=== PATIENT | male | born 1985 ===

== ENCOUNTER 2017-06-21 20:09 | Emergency (ER) | payer SELFPAY ==
[2017-06-21 20:17] VITALS: O2SAT 97
[2017-06-21] MEDS ORDERED: Sodium Chloride 0.9% 1,000 ML IV STA (22:06)
[2017-06-21 22:47] LABS: BASO % 0.6 % (0.0-2.0); HEMOGLOBIN 14.3 g/dL (12.0-18.0); LYMPH # 0.7 K/uL (1.0-4.3); LYMPH % 12.2 % (20.0-40.0); MEAN CELL VOLUME 86.9 fl (80.0-94.0); MEAN CORPUSCULAR HGB CONC 33.3 g/dL (33.0-37.0); MEAN PLATELET VOLUME 7.9 fl (7.2-11.7); MONO # 0.4 K/uL (0.0-0.8); MONO % 6.8 % (0.0-10.0); NEUT # 4.8 K/uL (1.8-7.0); NEUT % 80.4 % (50.0-75.0); RBC 4.94 Mil/uL (4.40-5.90)
[2017-06-21 23:04] LABS: ALBUMIN 4.5 g/dL (3.5-5.0); ALT/SGPT 43 U/L (21-72); AST/SGOT 25 U/L (17-59); BLOOD UREA NITROGEN 14 mg/dl (9-20); GFR AFRICAN-AMERICAN > 60; GFR NON-AFRICAN AMERICAN > 60; LIPASE 49 U/L (23-300)
[2017-06-21 23:05] LABS: ALB/GLOB RATIO 1.2 (1.0-2.1)
--- NOTE | 2017-06-21 23:35 | ED PDOC ---
HPI: Abdomen Time Seen by Provider: 06/21/17 21:53 Chief Complaint (Nursing): GI Problem Chief Complaint (Provider): GI Problem History Per: Patient History/Exam Limitations: no limitations Onset/Duration Of Symptoms: Days (x1) Current Symptoms Are (Timing): Still Present Additional Complaint(s): 32 year old male with previous medical history of spina bifida, who presents to the emergency department with a complaint of 15 episodes of vomiting associated with upper abdominal pain and gurgling noises ongoing since 0500 today. Denied any fever, chills, constipation or diarrhea. PMD: none provided Past Medical History Reviewed: Historical Data, Nursing Documentation, Vital Signs Vital Signs: Last Vital Signs Temp 99.6 F 06/21/17 20:14 Pulse 117 H 06/21/17 20:14 Resp 19 06/21/17 20:14 BP 164/94 H 06/21/17 20:14 Pulse Ox 97 06/21/17 23:40 - Medical History PMH: Migraine Other PMH: Spina bifida - Surgical History Surgical History: Denies: No Surg Hx Other surgeries: vp client services shunt - Family History Family History: States: Unknown Family Hx - Social History Current smoker - smoking cessation education provided: No Ex-Smoker (has not smoked in the last 12 months): No Alcohol: None Drugs: Cannabis - Home Medications Home Medications: Ambulatory Orders Medication Instructions Recorded Famotidine [Pepcid] 20 mg PO BID #20 tab 06/22/17 Ondansetron [Zofran] 4 mg PO Q8H #12 tab 06/22/17 - Allergies Allergies/Adverse Reactions: Allergies Allergy/AdvReac Type Severity Reaction Status Date / Time No Known Allergies Allergy Verified 06/21/17 20:13 Review of Systems ROS Statement: Except As Marked, All Systems Reviewed And Found Negative Constitutional: Negative for: Fever, Chills Gastrointestinal: Positive for: Vomiting (x15), Abdominal Pain (upper with gurgling sounds). Negative for: Diarrhea, Constipation Physical Exam - Reviewed Nursing Documentation Reviewed: Yes Vital Signs Reviewed: Yes - Physical Exam Appears: Positive for: Well, Non-toxic, No Acute Distress Head Exam: Positive for: ATRAUMATIC, NORMAL INSPECTION, NORMOCEPHALIC Skin: Positive for: Normal Color Eye Exam: Positive for: Normal appearance ENT: Positive for: Normal ENT Inspection Neck: Positive for: Normal, Painless ROM. Negative for: Decreased ROM Cardiovascular/Chest: Positive for: Regular Rate, Rhythm, Chest Non Tender Respiratory: Positive for: Normal Breath Sounds. Negative for: Decreased Breath Sounds, Wheezing, Respiratory Distress Gastrointestinal/Abdominal: Positive for: Soft, Tenderness (epigastric), Other ( old surgical scars present). Negative for: Normal Exam, Mass Extremity: Positive for: Normal ROM (upper/lower). Negative for: Deformity ( upper/lower) Neurologic/Psych: Positive for: Alert (x3), Oriented - Laboratory Results Result Diagrams: 06/21/17 22:40 06/21/17 22:40 - ECG O2 Sat by Pulse Oximetry: 97 (RA) Pulse Ox Interpretation: Normal Medical Decision Making Medical Decision Making: Initial Impression: Enteritis Initial Plan: * CMP * Lipase * CBC * NS 1,000ml IV per 1,000mls/hr * Toradol 30mg IVP * Zofran 4mg IVP ____ Time: 0130 --Upon provider reevaluation, patient is medically stable, feeling improved, tolerating PO well and requires no further treatment in the ED at this time. Patient will be discharged home with Rx for Pepcid 20mg and Zofran 4mg. Counseling was provided and all questions were answered regarding diagnosis and need for follow up with PMD. There is agreement to discharge plan. Return if symptoms persist or worsen. Clinical Impression: Gastroenteritis Scribe Attestation: Documented by Heather Covarrubias, acting as a scribe for Ty Mota MD. Provider Scribe Attestation: All medical record entries made by the Scribe were at my direction and personally dictated by me. I have reviewed the chart and agree that the record accurately reflects my personal performance of the history, physical exam, medical decision making, and the department course for this patient. I have also personally directed, reviewed, and agree with the discharge instructions and disposition. Disposition - Clinical Impression Clinical Impression: Gastroenteritis - Patient ED Disposition Is Patient to be Admitted: No Counseled Patient/Family Regarding: Studies Performed, Diagnosis, Need For Followup, Rx Given - Disposition Referrals: [facility] S[facility] [Outside] Disposition: Routine/Home Disposition Time: 01:30 Condition: IMPROVED Prescriptions: Famotidine [Pepcid] 20 mg PO BID #20 tab Ondansetron [Zofran] 4 mg PO Q8H #12 tab Instructions: Gastroenteritis (ED) Forms: [employer] (Icelandic)
[2017-06-22] MEDS ORDERED: Alum-Mag Hydrox-Simethicone Susp (30 mL) PO STA (00:18)
[2017-06-22] MEDS ORDERED: Alum-Mag Hydrox-Simethicone Susp (30 mL) ONE (00:38)
[2017-06-22 01:44] VITALS: BP 119/74; PULSE 96; RESP 18; TEMP 99
== END 2017-06-22 01:50 | disposition home or self-care (01) ==
LOC: H.ER 20:09
DX: K52.9 Noninfective gastroenteritis and colitis, unspecified (principal); Z98.2 Presence of cerebrospinal fluid drainage device
CPT/HCPCS: 80053; 83690; 85025; 96361; 96374; 96375; 99283; J1885; J2405; J7040

== ENCOUNTER 2018-05-19 02:50 | Inpatient (IN) | payer OTHER ==
[2018-05-19] MEDS ORDERED: Alum-Mag Hydrox-Simethicone Susp (30 mL) PO ONE (03:26)
[2018-05-19] MEDS ORDERED: Sodium Chloride 0.9% 1,000 ML IV STA (04:10)
--- NOTE | 2018-05-19 04:52 | ED PDOC ---
HPI: Abdomen Time Seen by Provider: 05/19/18 03:18 Chief Complaint (Nursing): Abdominal Pain Chief Complaint (Provider): Abdominal Pain History Per: Patient History/Exam Limitations: no limitations Onset/Duration Of Symptoms: Days (x1) Current Symptoms Are (Timing): Still Present Location Of Pain/Discomfort: Epigastric Quality Of Discomfort: Burning Associated Symptoms: Vomiting. denies: Fever Additional Complaint(s): 33 year old male, with a history of spina bifida and high blood pressure, presents with epigastric pain that started Saturday morning. Patient reports a burning pain that goes up into his chest. He states he took Tums and felt better but pain came back in the evening and it worsened. He states he can not sit down because of the pain. He reports he vomited x1 episode which was nonbloody and nonbilious. Denies abnormal bowel movements or fever. PMD: [facility] Past Medical History Reviewed: Historical Data, Nursing Documentation, Vital Signs Vital Signs: Last Vital Signs Temp 98 F 05/19/18 03:05 Pulse 90 05/19/18 03:05 Resp 16 05/19/18 03:05 BP 169/123 H 05/19/18 03:05 Pulse Ox 99 05/19/18 03:05 - Medical History PMH: Gastritis, HTN, Migraine Other PMH: spina bifida - Surgical History Surgical History: No Surg Hx - Family History Family History: States: Unknown Family Hx - Home Medications Home Medications: Ambulatory Orders Medication Instructions Recorded Famotidine [Pepcid] 20 mg PO BID #20 tab 06/22/17 Ondansetron [Zofran] 4 mg PO Q8H #12 tab 06/22/17 - Allergies Allergies/Adverse Reactions: Allergies Allergy/AdvReac Type Severity Reaction Status Date / Time No Known Allergies Allergy Verified 05/19/18 03:05 Review of Systems ROS Statement: Except As Marked, All Systems Reviewed And Found Negative Constitutional: Negative for: Fever Gastrointestinal: Positive for: Vomiting (x1), Abdominal Pain (epigastric pain). Negative for: Other (abnormal bowel movements) Physical Exam - Reviewed Nursing Documentation Reviewed: Yes Vital Signs Reviewed: Yes - Physical Exam Appears: Positive for: Non-toxic, No Acute Distress Head Exam: Positive for: ATRAUMATIC, NORMOCEPHALIC Skin: Positive for: Normal Color, Warm, Dry Eye Exam: Positive for: Normal appearance Neck: Positive for: Normal, Painless ROM Cardiovascular/Chest: Positive for: Regular Rate, Rhythm Respiratory: Positive for: Normal Breath Sounds. Negative for: Wheezing, Respiratory Distress Gastrointestinal/Abdominal: Positive for: Soft, Tenderness (to palpation in epigastric region). Negative for: Guarding, Rebound Extremity: Positive for: Normal ROM Neurologic/Psych: Positive for: Alert, Oriented. Negative for: Motor/Sensory Deficits - Laboratory Results Result Diagrams: 05/19/18 04:40 05/19/18 04:40 - ECG O2 Sat by Pulse Oximetry: 99 (RA) Pulse Ox Interpretation: Normal Medical Decision Making Medical Decision Making: Initial Impression: 33 y/o male with epigastric pain and vomiting x1 day. Patient is uncomfortable but otherwise well appearing. Differential includes but not limited to GERD, gastritis, pancreatitis, and biliary disease Initial Plan: --BMP --Lipase stat --LFT --CBC --Lidocaine 2% 15ml PO --Aluminum hydroxide 30mL PO --Sodium chloride 1000mL IV --Pepcid 20mg PO 400 Patient had no relief from GI cocktail Labs and PPI ordered 515 Patient still in pain Morphine 2mg IV ordered CT A/P ordered for continued abd pain [address] Francisco pending CT and re-eval --- Scribe Attestation: Documented by Adriano Sarkar acting as a scribe for Ty Mota MD. Provider Scribe Attestation: All medical record entries made by the Scribe were at my direction and personally dictated by me. I have reviewed the chart and agree that the record accurately reflects my personal performance of the history, physical exam, medical decision making, and the department course for this patient. I have also personally directed, reviewed, and agree with the discharge instructions and disposition. Disposition - Clinical Impression Clinical Impression: Abdominal pain - Patient ED Disposition Is Patient to be Admitted: Transfer of Care - Disposition Disposition: Transfer of Care Disposition Time: 07:00 Condition: STABLE Forms: [employer] (Azerbaijani) Patient Signed Over To: Zoraida Francisco Handoff Comments: pending CT and re-eval
[2018-05-19 05:02] LABS: BASO # 0.1 K/uL (0.0-0.2); BASO % 0.8 % (0.0-2.0); EOS # 0.1 K/uL (0.0-0.7); EOS % 1.1 % (0.0-4.0); HEMOGLOBIN 14.4 g/dL (12.0-18.0); LYMPH # 1.6 K/uL (1.0-4.3); MEAN CELL VOLUME 88.3 fl (80.0-94.0); MEAN CORPUSCULAR HEMOGLOBIN 29.6 pg (27.0-31.0); MEAN CORPUSCULAR HGB CONC 33.5 g/dL (33.0-37.0); MEAN PLATELET VOLUME 8.1 fl (7.2-11.7); MONO # 0.6 K/uL (0.0-0.8); MONO % 8.9 % (0.0-10.0); NEUT # 4.7 K/uL (1.8-7.0); NEUT % 66.2 % (50.0-75.0); RBC 4.86 Mil/uL (4.40-5.90); RED CELL DISTRIBUTION WIDTH 13.2 % (11.5-14.5); WHITE BLOOD COUNT 7.1 K/uL (4.8-10.8)
[2018-05-19 05:08] LABS: ALB/GLOB RATIO 1.2 (1.0-2.1); ALBUMIN 4.5 g/dL (3.5-5.0); ALT/SGPT 41 U/L (21-72); AST/SGOT 25 U/L (17-59); BILIRUBIN,DIRECT 0.2 mg/ml (0.0-0.4); BLOOD UREA NITROGEN 14 mg/dl (9-20); CALCIUM 9.3 mg/dL (8.4-10.2); GFR NON-AFRICAN AMERICAN > 60; LIPASE 48 U/L (23-300)
[2018-05-19] MEDS ORDERED: Iohexol 240 (50 ml) PO ONE (05:23)
--- NOTE | 2018-05-19 07:07 | ED PDOC ---
- Laboratory Results Result Diagrams: 05/19/18 04:40 05/19/18 04:40 - ECG O2 Sat by Pulse Oximetry: 99 (RA) Medical Decision Making Medical Decision Makin Patient care endorsed from Dr. Mota to this provider pending CT and reevaluation. 1033 CT Abd/Pelvis FINDINGS: LOWER THORAX: The visualized lungs are clear. LIVER: Normal in size with homogeneous enhancement. Diffuse fatty liver. No gross lesion or ductal dilatation. GALLBLADDER AND BILE DUCTS: There is a 3.2 cm peripherally calcified gallstone in the region of the neck of the gallbladder. There is mild gallbladder distention. No wall thickening or pericholecystic fluid. PANCREAS: Normal in size with homogeneous enhancement. No gross lesion or ductal dilatation. SPLEEN: Normal in size and appearance. ADRENALS: No discrete nodule. KIDNEYS AND URETERS: Normal in size with homogeneous enhancement. No hydronephrosis. No solid mass. VASCULATURE: No aortic aneurysm. BOWEL: Evaluation of the bowel is limited in the absence of oral contrast. The small bowel loops are normal in caliber. The colon is grossly normal in appearance. No bowel wall thickening or obstruction. APPENDIX: Normal appendix. PERITONEUM: No free fluid. No free air. LYMPH NODES: No enlarged lymph nodes. BLADDER: Partially decompressed. REPRODUCTIVE: The prostate gland is normal in size. BONES: No acute fracture. Within normal limits for the patient's age. OTHER FINDINGS: None. IMPRESSION: 3.1 cm gallstone in the region of the neck of the gallbladder. Mild gallbladder distention without CT evidence for acute cholecystitis. If clinically indic ated, correlation with right upper quadrant ultrasound may be performed. [address] findings, US abdomen ordered. 1147 US Abdomen FINDINGS: LIVER: Measures 18.7 cm in length. Normal echogenicity of the liver parenchyma. No mass. No intrahepatic bile duct dilatation. GALLBLADDER: There is a 1.8 cm stone in the region of the neck of the gallbladder. No gallbl adder wall thickening or pericholecystic fluid. The sonographic Shelley's sign is negative. COMMON BILE DUCT: Measures 3.5 mm. No stones. No dilatation. PANCREAS: Unremarkable as visualized. No mass. No ductal dilatation. RIGHT KIDNEY: Measures 12.0 cm in length. Normal echogenicity. No calculus, mass, or hydronephrosis. AORTA: No aneurysmal dilatation. IVC: Unremarkable. OTHER FINDINGS: None . IMPRESSION: Solitary 1.8 cm gallstone in the region of the neck of the gallbladder. Mild hepatomegaly and fatty liver. 1211 Discussed case with residential mortgage manager. ------- Scribe Attestation: Documented by Adriana Villarreal acting as a scribe for Zoraida Francisco MD. Provider Scribe Attestation: All medical record entries made by the Scribe were at my direction and personally dictated by me. I have reviewed the chart and agree that the record accurately reflects my personal performance of the history, physical exam, medical decision making, and the department course for this patient. I have also personally directed, reviewed, and agree with the discharge instructions and disposition. Disposition - Clinical Impression Clinical Impression: Cholelithiasis - POA Present On Arrival: None - Disposition Disposition: Admitted as In-Patient Disposition Time: 13:45 Condition: STABLE Forms: [employer] (Urdu)
[2018-05-19] MEDS ORDERED: Iohexol 300 100 ML IJ ONE (07:35)
[2018-05-19] MEDS ORDERED: Sodium Chloride 0.9% 50 ML IV ONE (07:35)
[2018-05-19 09:18] LABS: SQUAMOUS EPITHIAL < 1 /hpf (0-5); URINE BILIRUBIN NEGATIVE (NEGATIVE); URINE BLOOD NEGATIVE (NEGATIVE); URINE CLARITY CLEAR (Clear); URINE COLOR STRAW (YELLOW); URINE GLUCOSE (UA) NEG (NEGATIVE); URINE LEUKOCYTE ESTERASE NEG Leu/uL (Negative); URINE PROTEIN NEGATIVE (NEGATIVE); URINE UROBILINOGEN 0.2-1.0 mg/dL (0.2-1.0)
--- NOTE | 2018-05-19 10:37 | CT ---
Date of service: 05/19/2018 PROCEDURE: CT Abdomen and Pelvis with contrast HISTORY: epig pain COMPARISON: None available. TECHNIQUE: CT scan of the abdomen and pelvis was performed after administration of intravenous contrast. Oral contrast was not administered. Coronal and sagittal reformatted images were obtained. Contrast dose: Radiation dose: Total exam DLP = 919.59 mGy-cm. This CT exam was performed using one or more of the following dose reduction techniques: Automated exposure control, adjustment of the mA and/or kV according to patient size, and/or use of iterative reconstruction technique. FINDINGS: LOWER THORAX: The visualized lungs are clear. LIVER: Normal in size with homogeneous enhancement. Diffuse fatty liver. No gross lesion or ductal dilatation. GALLBLADDER AND BILE DUCTS: There is a 3.2 cm peripherally calcified gallstone in the region of the neck of the gallbladder. There is mild gallbladder distention. No wall thickening or pericholecystic fluid. PANCREAS: Normal in size with homogeneous enhancement. No gross lesion or ductal dilatation. SPLEEN: Normal in size and appearance. ADRENALS: No discrete nodule. KIDNEYS AND URETERS: Normal in size with homogeneous enhancement. No hydronephrosis. No solid mass. VASCULATURE: No aortic aneurysm. BOWEL: Evaluation of the bowel is limited in the absence of oral contrast. The small bowel loops are normal in caliber. The colon is grossly normal in appearance. No bowel wall thickening or obstruction. APPENDIX: Normal appendix. PERITONEUM: No free fluid. No free air. LYMPH NODES: No enlarged lymph nodes. BLADDER: Partially decompressed. REPRODUCTIVE: The prostate gland is normal in size. BONES: No acute fracture. Within normal limits for the patient's age. OTHER FINDINGS: None. IMPRESSION: 3.1 cm gallstone in the region of the neck of the gallbladder. Mild gallbladder distention without CT evidence for acute cholecystitis. If clinically indicated, correlation with right upper quadrant ultrasound may be performed.
--- NOTE | 2018-05-19 11:51 | US ---
Date of service: 05/19/2018 HISTORY: Gallbladder stone COMPARISON: None. TECHNIQUE: Grayscale imaging was performed. FINDINGS: LIVER: Measures 18.7 cm in length. Normal echogenicity of the liver parenchyma. No mass. No intrahepatic bile duct dilatation. GALLBLADDER: There is a 1.8 cm stone in the region of the neck of the gallbladder. No gallbladder wall thickening or pericholecystic fluid. The sonographic Shelley's sign is negative. COMMON BILE DUCT: Measures 3.5 mm. No stones. No dilatation. PANCREAS: Unremarkable as visualized. No mass. No ductal dilatation. RIGHT KIDNEY: Measures 12.0 cm in length. Normal echogenicity. No calculus, mass, or hydronephrosis. AORTA: No aneurysmal dilatation. IVC: Unremarkable. OTHER FINDINGS: None . IMPRESSION: Solitary 1.8 cm gallstone in the region of the neck of the gallbladder. Mild hepatomegaly and fatty liver.
--- NOTE | 2018-05-19 13:26 | CP.PCM.CON ---
<Db Osborne - Last Filed: 05/19/18 13:21> History of Present Illness - History of Present Illness History of Present Illness: General Surgery Consult Note for Dr. Mckeon Consult: Gallstones CC: Abdominal pain HPI: 33 year old male, past medical history of spina bifida s/p [employer] shunt, presents to the ED with constant, nonradiating epigastric pain that started saturday and worsened saturday night after eating a fatty meal. Patient had one episode of NBNB vomit and nausea. Tried Tylenol which did not help with pain. Nothing alleviates or worsens symptoms at this time. Denies any fevers. Has appetite but has not eaten since arrival. Passing gas and had a bowel movement. Patient has fecal and urinary incontinence secondary to medical condition. Denies shortness of breath, chest pain, chills, headaches, dizziness, or urinary symptoms. 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 FH: noncontributory SH: Smokes weed, denies tobacco and alcohol ALL: Tomatoes Meds: none Review of Systems - Constitutional Constitutional: absent: Chills, Fever, Weakness - EENT Eyes: absent: Blurred Vision, Change in Vision Nose/Mouth/Throat: absent: Nasal Congestion, Nasal Discharge - Cardiovascular Cardiovascular: absent: Chest Pain, Dyspnea - Respiratory Respiratory: absent: Cough, Dyspnea - Gastrointestinal Gastrointestinal: Abdominal Pain, Bloating, Nausea, Vomiting - Genitourinary Genitourinary: Urinary Incontinence - Musculoskeletal Musculoskeletal: absent: Back Pain, Neck Pain - Integumentary Integumentary: absent: Bleeding Lesions, Changing Lesions - Neurological Neurological: absent: Confusion, Dizziness - Psychiatric Psychiatric: absent: Anxiety, Depression Past Patient History - Past Social History Smoking Status: Never Smoked - CARDIAC Hx Hypertension: Yes - NEUROLOGICAL Hx Migraine: Yes - GASTROINTESTINAL Hx Gastritis: Yes - PSYCHIATRIC Hx Substance Use: Yes - SURGICAL HISTORY Hx Surgeries: Yes Other/Comment: E LEARNING MANAGER shunt - ANESTHESIA Hx Anesthesia: Yes Hx Anesthesia Reactions: No Hx Malignant Hyperthermia: No Meds Allergies/Adverse Reactions: Allergies Allergy/AdvReac Type Severity Reaction Status Date / Time No Known Allergies Allergy Verified 05/19/18 03:05 Physical Exam - Constitutional Appears: Well, Non-toxic, No Acute Distress - Head Exam Head Exam: ATRAUMATIC, NORMAL INSPECTION, NORMOCEPHALIC - Eye Exam Eye Exam: EOMI - ENT Exam ENT Exam: Mucous Membranes Moist - Respiratory Exam Respiratory Exam: NORMAL BREATHING PATTERN. absent: Respiratory Distress - Cardiovascular Exam Cardiovascular Exam: REGULAR RHYTHM. absent: Tachycardia - GI/Abdominal Exam GI & Abdominal Exam: Normal Bowel Sounds, Soft, Tenderness. absent: Distended, Guarding, Rebound Additional comments: Epigastric and suprapubic scars from previous surgeries - Neurological Exam Neurological exam: Alert, Oriented x3 - Psychiatric Exam Psychiatric exam: Normal Affect, Normal Mood - Skin Skin Exam: Dry, Intact, Normal Color, Warm Results - Vital Signs Recent Vital Signs: Last Vital Signs Temp 98 F 05/19/18 03:05 Pulse 90 05/19/18 03:05 Resp 16 05/19/18 03:05 BP 141/80 05/19/18 05:29 Pulse Ox 99 05/19/18 12:13 - Labs Result Diagrams: 05/19/18 04:40 05/19/18 04:40 Labs: Laboratory Results - last 24 hr 05/19/18 05/19/18 05/19/18 04:40 04:40 08:54 WBC 7.1 RBC 4.86 Hgb 14.4 Hct 42.9 MCV 88.3 MCH 29.6 MCHC 33.5 RDW 13.2 Plt Count 305 MPV 8.1 Neut % (Auto) 66.2 Lymph % (Auto) 23.0 [place] % (Auto) 8.9 Eos % (Auto) 1.1 Baso % (Auto) 0.8 Neut # (Auto) 4.7 Lymph # (Auto) 1.6 [place] # (Auto) 0.6 Eos # (Auto) 0.1 Baso # (Auto) 0.1 Sodium 140 Potassium 4.3 Chloride 103 Carbon Dioxide 26 Anion Gap 15 BUN 14 Creatinine 0.7 L Est GFR ( Amer) > 60 Est GFR (Non-Af Amer) > 60 Random Glucose 116 H Calcium 9.3 Total Bilirubin 0.6 Direct Bilirubin 0.2 AST 25 ALT 41 Alkaline Phosphatase 65 Total Protein 8.5 H Albumin 4.5 Globulin 4.0 H Albumin/Globulin Ratio 1.2 Lipase 48 Urine Color Straw Urine Clarity Clear Urine pH 7.0 Ur Specific [place] 1.010 Urine Protein Negative Urine Glucose (UA) Neg Urine Ketones Negative Urine Blood Negative Urine Nitrate Negative Urine Bilirubin Negative Urine Urobilinogen 0.2-1.0 Ur Leukocyte Esterase Neg Urine RBC (Auto) < 1 Urine Microscopic WBC < 1 Ur Squamous Epith Cells < 1 Assessment & Plan - Assessment and Plan (Free Text) Assessment: 33M w/ abdominal pain likely secondary to cholelithiasis Plan: NPO IVF Antiemetics and analgesics Will schedule for OR Further recommendations per Dr. Mike Osborne PGY1 <Shantanu Mckeon - Last Filed: 05/19/18 13:42> Results - Vital Signs Recent Vital Signs: Last Vital Signs Temp 98 F 05/19/18 03:05 Pulse 90 05/19/18 03:05 Resp 16 05/19/18 03:05 BP 141/80 05/19/18 05:29 Pulse Ox 99 05/19/18 12:13 - Labs Result Diagrams: 05/19/18 04:40 05/19/18 04:40 Labs: Laboratory Results - last 24 hr 05/19/18 05/19/18 05/19/18 04:40 04:40 08:54 WBC 7.1 RBC 4.86 Hgb 14.4 Hct 42.9 MCV 88.3 MCH 29.6 MCHC 33.5 RDW 13.2 Plt Count 305 MPV 8.1 Neut % (Auto) 66.2 Lymph % (Auto) 23.0 [place] % (Auto) 8.9 Eos % (Auto) 1.1 Baso % (Auto) 0.8 Neut # (Auto) 4.7 Lymph # (Auto) 1.6 [place] # (Auto) 0.6 Eos # (Auto) 0.1 Baso # (Auto) 0.1 Sodium 140 Potassium 4.3 Chloride 103 Carbon Dioxide 26 Anion Gap 15 BUN 14 Creatinine 0.7 L Est GFR ( Amer) > 60 Est GFR (Non-Af Amer) > 60 Random Glucose 116 H Calcium 9.3 Total Bilirubin 0.6 Direct Bilirubin 0.2 AST 25 ALT 41 Alkaline Phosphatase 65 Total Protein 8.5 H Albumin 4.5 Globulin 4.0 H Albumin/Globulin Ratio 1.2 Lipase 48 Urine Color Straw Urine Clarity Clear Urine pH 7.0 Ur Specific [place] 1.010 Urine Protein Negative Urine Glucose (UA) Neg Urine Ketones Negative Urine Blood Negative Urine Nitrate Negative Urine Bilirubin Negative Urine Urobilinogen 0.2-1.0 Ur Leukocyte Esterase Neg Urine RBC (Auto) < 1 Urine Microscopic WBC < 1 Ur Squamous Epith Cells < 1 Assessment & Plan - Assessment and Plan (Free Text) Plan: addendum agree with resident note pt seen and examined at bedside with residents. reports epigastric pain x 2 days which worsen at 3am today, 1 episodes of non bilious vomiting. Pain only relieved in ED after given morphine. Currently pain has improved and tolerable but persist. One similar episode about 1 yr ago. 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
[2018-05-19] MEDS ORDERED: Piperacillin/Tazobact 3.375 gm Inj IVPB ONE (13:49)
[2018-05-19] MEDS: Piperacillin/Tazobact 3.375 GM in Sodium Chloride 0.9% 100 ML IVPB SCH (13:59)
[2018-05-19] MEDS: Lactated Ringer's 1,000 ML IV SCH (13:59)
--- NOTE | 2018-05-19 14:29 | RAD ---
Date of service: 05/19/2018 PROCEDURE: CHEST RADIOGRAPH, 1 VIEW HISTORY: preop COMPARISON: None available. FINDINGS: Right IJV line terminates in the right atrium. LUNGS: The lungs are well inflated and clear. PLEURA: No pneumothorax or pleural effusion. CARDIOVASCULAR: The heart is normal in size. No aortic atherosclerotic calcifications present. OSSEOUS STRUCTURES: Within normal limits for the patient's age. VISUALIZED UPPER ABDOMEN: Normal. OTHER FINDINGS: None. IMPRESSION: No active pulmonary disease.
--- NOTE | 2018-05-19 19:08 | CP.PCM.HP ---
History of Present Illness - History of Present Illness History of Present Illness: 33 yo male with history of Spina Bifida and urinary incontinence came in because of on and off epigastric pain since 2 days ago. Pain was non-radiating and not accompanied with nausea, vomiting or diarrhea. Patient denied fever or chills. Present on Admission - Present on Admission Any Indicators Present on Admission: No History of DVT/PE: No History of Uncontrolled Diabetes: No Urinary Catheter: No Decubitus Ulcer Present: No Review of Systems - Review of Systems All systems: reviewed and no additional remarkable complaints except (aside from those mentioned above, 12 point system review were negative by me) Past Patient History - Tetanus Immunizations Tetanus Immunization: Unknown - Past Medical History & Family History Past Medical History?: Yes - Past Social History Smoking Status: Never Smoked (never smoke cigarettes but smokes weeds daily) Chewing Tobacco Use: No Cigar Use: No Alcohol: Occasional Drugs: Cannabis Home Situation {Lives}: With Family - CARDIAC Hx Hypertension: Yes - NEUROLOGICAL Hx Migraine: Yes - GASTROINTESTINAL Hx Gastritis: Yes - PSYCHIATRIC Hx Substance Use: Yes - SURGICAL HISTORY Hx Surgeries: Yes Other/Comment: CENTERPUNCHER shunt during infancy - ANESTHESIA Hx Anesthesia: Yes Hx Anesthesia Reactions: No Hx Malignant Hyperthermia: No Meds Allergies/Adverse Reactions: Allergies Allergy/AdvReac Type Severity Reaction Status Date / Time No Known Allergies Allergy Verified 05/19/18 03:05 Physical Exam - Constitutional Appears: No Acute Distress - Head Exam Head Exam: absent: NORMAL INSPECTION (elevated surgical scar on right parieto- temporal area) - Eye Exam Eye Exam: absent: Scleral icterus - ENT Exam ENT Exam: Mucous Membranes Moist - Neck Exam Neck exam: Negative for: Meningismus - Respiratory Exam Respiratory Exam: absent: Rales, Rhonchi, Wheezes, Respiratory Distress - Cardiovascular Exam Cardiovascular Exam: REGULAR RHYTHM, +S1, +S2 - GI/Abdominal Exam GI & Abdominal Exam: Soft. absent: Tenderness - Rectal Exam Rectal Exam: Deferred - Neurological Exam Neurological exam: Alert, Oriented x3 - Psychiatric Exam Psychiatric exam: Normal Affect - Skin Skin Exam: Dry, Intact Results - Vital Signs Recent Vital Signs: Last Vital Signs Temp 98.4 F 05/19/18 17:56 Pulse 88 05/19/18 17:56 Resp 18 05/19/18 17:56 BP 155/89 H 05/19/18 17:56 Pulse Ox 99 05/19/18 17:56 - Labs Result Diagrams: 05/19/18 04:40 05/19/18 04:40 Labs: Laboratory Results - last 24 hr 05/19/18 05/19/18 05/19/18 04:40 04:40 08:54 WBC 7.1 RBC 4.86 Hgb 14.4 Hct 42.9 MCV 88.3 MCH 29.6 MCHC 33.5 RDW 13.2 Plt Count 305 MPV 8.1 Neut % (Auto) 66.2 Lymph % (Auto) 23.0 Sanders % (Auto) 8.9 Eos % (Auto) 1.1 Baso % (Auto) 0.8 Neut # (Auto) 4.7 Lymph # (Auto) 1.6 Sanders # (Auto) 0.6 Eos # (Auto) 0.1 Baso # (Auto) 0.1 Sodium 140 Potassium 4.3 Chloride 103 Carbon Dioxide 26 Anion Gap 15 BUN 14 Creatinine 0.7 L Est GFR ( Amer) > 60 Est GFR (Non-Af Amer) > 60 Random Glucose 116 H Calcium 9.3 Total Bilirubin 0.6 Direct Bilirubin 0.2 AST 25 ALT 41 Alkaline Phosphatase 65 Total Protein 8.5 H Albumin 4.5 Globulin 4.0 H Albumin/Globulin Ratio 1.2 Lipase 48 Urine Color Straw Urine Clarity Clear Urine pH 7.0 Ur Specific Oracle 1.010 Urine Protein Negative Urine Glucose (UA) Neg Urine Ketones Negative Urine Blood Negative Urine Nitrate Negative Urine Bilirubin Negative Urine Urobilinogen 0.2-1.0 Ur Leukocyte Esterase Neg Urine RBC (Auto) < 1 Urine Microscopic WBC < 1 Ur Squamous Epith Cells < 1 Assessment & Plan - Assessment and Plan (Free Text) Assessment: 33 yo male with history of Spina Bifida and urinary incontinence came in because of on and off epigastric pain since 2 days ago. Pain was non-radiating and not accompanied with nausea, vomiting or diarrhea. Patient denied fever or chills. 1. Cholelithiasis surgical consult on board CT and sonogram of abdomen showed 3.1cm gallstone in the neck of gallbladder but negative for cholecystitis patient started on IV Zosyn follow up blood culture 2. 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 Elevated BP patient denied HTN and denied taking BP medication presently BP was controlled monitor BP
[2018-05-19] MEDS: Sodium Chloride 0.9% 1,000 ML IV SCH (20:05)
[2018-05-20 05:59] LABS: HEMOGLOBIN 13.7 g/dL (12.0-18.0); MEAN CELL VOLUME 87.9 fl (80.0-94.0); MEAN CORPUSCULAR HEMOGLOBIN 29.8 pg (27.0-31.0); MEAN CORPUSCULAR HGB CONC 33.8 g/dL (33.0-37.0); RBC 4.61 Mil/uL (4.40-5.90); RED CELL DISTRIBUTION WIDTH 13.2 % (11.5-14.5); WHITE BLOOD COUNT 4.8 K/uL (4.8-10.8)
[2018-05-20 06:04] LABS: PROTHROMBIN TIME 11.9 Seconds (9.8-13.1)
[2018-05-20 06:07] LABS: PARTIAL THROMBOPLASTIN TIME 30.4 Seconds (25.6-37.1)
[2018-05-20] MEDS: Sodium Chloride 0.9% 1,000 ML IV SCH ×2 (06:28→21:52)
--- NOTE | 2018-05-20 06:51 | CARD ---
APPROVED REPORT Date of service: 05/19/2018 EKG Measurement Heart [id number] <Conclusion> Normal sinus rhythm Normal ECG
[2018-05-20 06:58] LABS: ALB/GLOB RATIO 1.1 (1.0-2.1); ALBUMIN 3.9 g/dL (3.5-5.0); BLOOD UREA NITROGEN 9 mg/dl (9-20)
[2018-05-20 07:02] LABS: ALT/SGPT 40 U/L (21-72); AST/SGOT 31 U/L (17-59); CALCIUM 8.7 mg/dL (8.4-10.2); GFR NON-AFRICAN AMERICAN > 60
[2018-05-20] MEDS ORDERED: Bupivacaine HCl 0.5% PF (30 ml) Inj ONE (07:16)
[2018-05-20] MEDS ORDERED: Morphine 4 MG/ML VIAL IVP PRN ×2 (09:44→09:46)
[2018-05-20] MEDS: Piperacillin/Tazobact 3.375 GM in Sodium Chloride 0.9% 100 ML IVPB SCH ×2 (10:19→21:54)
--- NOTE | 2018-05-20 10:42 | CP.PCM.PN ---
<Prakash Britton - Last Filed: 05/20/18 10:39> Subjective - Date & Time of Evaluation Date of Evaluation: 05/20/18 Time of Evaluation: 10:40 - Subjective Subjective: 33M seen and evaluated at bedside. Resting comfortably sitting up in chair. Confirms NPO status and states that he was told he will go to surgery at around 1 PM. States that he is in minimal pain today and that he had no acute events overnight. Denies N/V/F/C/SOB/CP. Has no other acute complaints. Objective - Vital Signs/Intake and Output Vital Signs (last 24 hours): Temp Pulse Resp BP Pulse Ox 98.4 F 82 20 113/67 93 L 05/20/18 08:24 05/20/18 08:24 05/20/18 08:24 05/20/18 08:24 05/20/18 08:24 - Medications Medications: Current Medications Acetaminophen (Tylenol 650 Mg Supp) 650 mg NE Q6 PRN PRN Reason: Fever >100.4 F Lactated Ringer's (Lactated Ringer's) 1,000 mls @ 125 mls/hr IV .Q8H [facility] Last Admin: 05/19/18 13:59 Dose: 125 mls/hr Piperacillin Sod/Tazobactam (Sod 3.375 gm/ Sodium Chloride) 100 mls @ 100 mls/hr IVPB Q12 [facility]; Protocol Last Admin: 05/20/18 10:19 Dose: 100 mls/hr Sodium Chloride (Sodium Chloride 0.9%) 1,000 mls @ 100 mls/hr IV .Q10H [facility] Last Admin: 05/20/18 06:28 Dose: 100 mls/hr Ketorolac Tromethamine (Toradol) 15 mg IVP Q6 PRN PRN Reason: Pain, moderate (4-7) Ketorolac Tromethamine (Toradol) 30 mg IVP Q6 PRN PRN Reason: Pain, severe (8-10) Morphine Sulfate (Morphine) 2 mg IVP Q4 PRN PRN Reason: Pain, moderate (4-7) Morphine Sulfate (Morphine) 4 mg IVP Q4 PRN PRN Reason: Pain, moderate (4-7) Morphine Sulfate (Morphine) 6 mg IVP Q4 PRN PRN Reason: Pain, severe (8-10) Ondansetron HCl (Zofran Inj) 4 mg IVP Q6 PRN PRN Reason: Nausea/Vomiting - Labs Labs: 05/20/18 05:45 05/20/18 05:45 PT 11.9 Seconds (9.8-13.1) 05/20/18 05:45 INR 1.0 05/20/18 05:45 APTT 30.4 Seconds (25.6-37.1) 05/20/18 05:45 - Constitutional Appears: Well, Non-toxic, No Acute Distress - Head Exam Head Exam: ATRAUMATIC, NORMOCEPHALIC - Eye Exam Eye Exam: EOMI - ENT Exam ENT Exam: Mucous Membranes Moist - Respiratory Exam Respiratory Exam: Clear to Ausculation Bilateral, NORMAL BREATHING PATTERN - Cardiovascular Exam Cardiovascular Exam: REGULAR RHYTHM, +S1, +S2. absent: Tachycardia, Murmur - GI/Abdominal Exam GI & Abdominal Exam: Soft, Tenderness, Normal Bowel Sounds Additional comments: Epigastric and suprapubic scars from previous surgeries - Neurological Exam Neurological Exam: Alert, Awake, Oriented x3 - Psychiatric Exam Psychiatric exam: Normal Affect, Normal Mood - Skin Skin Exam: Dry, Normal Color, Warm Assessment and Plan - Assessment and Plan (Free Text) Assessment: 33M w/ abdominal pain likely secondary to cholelithiasis Plan: 1. Cholelithiasis surgical consult on board NPO status maintained, resume diet postoperatively Scheduled for OR ~[address] and sonogram of abdomen showed 3.1cm gallstone in the neck of gallbladder but negative for cholecystitis IV Zosyn day 2 follow up blood culture UA negative Type and screen performed 2. 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 Elevated BP patient denied HTN and denied taking BP medication presently BP was controlled monitor BP <Jose Fortune D - Last Filed: 05/20/18 16:57> Objective - Vital Signs/Intake and Output Vital Signs (last 24 hours): Temp Pulse Resp BP Pulse Ox 98.7 F 85 20 155/98 H 97 05/20/18 15:55 05/20/18 15:55 05/20/18 15:55 05/20/18 15:55 05/20/18 15:55 - Medications Medications: Current Medications Acetaminophen (Tylenol 650 Mg Supp) 650 mg NE Q6 PRN PRN Reason: Fever >100.4 F Amlodipine Besylate (Norvasc) 5 mg PO DAILY [facility] Lactated Ringer's (Lactated Ringer's) 1,000 mls @ 125 mls/hr IV .Q8H [facility] Last Admin: 05/19/18 13:59 Dose: 125 mls/hr Piperacillin Sod/Tazobactam (Sod 3.375 gm/ Sodium Chloride) 100 mls @ 100 mls/hr IVPB Q12 [facility]; Protocol Last Admin: 05/20/18 10:19 Dose: 100 mls/hr Sodium Chloride (Sodium Chloride 0.9%) 1,000 mls @ 100 mls/hr IV .Q10H [facility] Last Admin: 05/20/18 06:28 Dose: 100 mls/hr Ketorolac Tromethamine (Toradol) 15 mg IVP Q6 PRN PRN Reason: Pain, moderate (4-7) Ketorolac Tromethamine (Toradol) 30 mg IVP Q6 PRN PRN Reason: Pain, severe (8-10) Morphine Sulfate (Morphine) 2 mg IVP Q4 PRN PRN Reason: Pain, moderate (4-7) Morphine Sulfate (Morphine) 4 mg IVP Q4 PRN PRN Reason: Pain, moderate (4-7) Morphine Sulfate (Morphine) 6 mg IVP Q4 PRN PRN Reason: Pain, severe (8-10) Ondansetron HCl (Zofran Inj) 4 mg IVP Q6 PRN PRN Reason: Nausea/Vomiting - Labs Labs: 05/20/18 05:45 05/20/18 05:45 PT 11.9 Seconds (9.8-13.1) 05/20/18 05:45 INR 1.0 05/20/18 05:45 APTT 30.4 Seconds (25.6-37.1) 05/20/18 05:45 Attending/Attestation - Attestation I have personally seen and examined this patient.: Yes I have fully participated in the care of the patient.: Yes I have reviewed all pertinent clinical information, including history, physical exam and plan: Yes Notes (Text): 05/20/18 16:49 Patient seen and examined with resident. Case discussed and agreed with asses sment. Patient denied history of any cardiac problem or presence of recent chest pain or SOB. Patient is medically cleared as low risk for surgery.
--- NOTE | 2018-05-20 11:21 | CP.PCM.PN ---
Subjective - Date & Time of Evaluation Date of Evaluation: 05/20/18 Time of Evaluation: 11:18 - Subjective Subjective: General Surgery Pt seen and examined this AM. He denies having any abdominal pain. He has remained NPO. Afebrile Labs and vital noted. PE Gen: Pt laying in bed in NAD Skin: warm and dry Cardio: s1s2 RRR Lungs: CTA bilaterally Abd: Soft NTND, (+) multiple well healed surgical scars. Extr: (-) calf swelling or tenderness bilaterally A/P Cholelithiasis, abdominal pain Maintain NPO for now. Pt pending OR time today? or tomorrow? Continue abx Continue IVF. Objective - Vital Signs/Intake and Output Vital Signs (last 24 hours): Temp Pulse Resp BP Pulse Ox 98.4 F 82 20 113/67 93 L 05/20/18 08:24 05/20/18 08:24 05/20/18 08:24 05/20/18 08:24 05/20/18 08:24 - Medications Medications: Current Medications Acetaminophen (Tylenol 650 Mg Supp) 650 mg HI Q6 PRN PRN Reason: Fever >100.4 F Lactated Ringer's (Lactated Ringer's) 1,000 mls @ 125 mls/hr IV .Q8H [facility] Last Admin: 05/19/18 13:59 Dose: 125 mls/hr Piperacillin Sod/Tazobactam (Sod 3.375 gm/ Sodium Chloride) 100 mls @ 100 mls/hr IVPB Q12 [facility]; Protocol Last Admin: 05/20/18 10:19 Dose: 100 mls/hr Sodium Chloride (Sodium Chloride 0.9%) 1,000 mls @ 100 mls/hr IV .Q10H [facility] Last Admin: 05/20/18 06:28 Dose: 100 mls/hr Ketorolac Tromethamine (Toradol) 15 mg IVP Q6 PRN PRN Reason: Pain, moderate (4-7) Ketorolac Tromethamine (Toradol) 30 mg IVP Q6 PRN PRN Reason: Pain, severe (8-10) Morphine Sulfate (Morphine) 2 mg IVP Q4 PRN PRN Reason: Pain, moderate (4-7) Morphine Sulfate (Morphine) 4 mg IVP Q4 PRN PRN Reason: Pain, moderate (4-7) Morphine Sulfate (Morphine) 6 mg IVP Q4 PRN PRN Reason: Pain, severe (8-10) Ondansetron HCl (Zofran Inj) 4 mg IVP Q6 PRN PRN Reason: Nausea/Vomiting - Labs Labs: 05/20/18 05:45 05/20/18 05:45 PT 11.9 Seconds (9.8-13.1) 05/20/18 05:45 INR 1.0 05/20/18 05:45 APTT 30.4 Seconds (25.6-37.1) 05/20/18 05:45
[2018-05-21 06:22] LABS: BLOOD UREA NITROGEN 15 mg/dl (9-20); CALCIUM 9.1 mg/dL (8.4-10.2); GFR NON-AFRICAN AMERICAN > 60
[2018-05-21] MEDS ORDERED: Propofol 10 mg/ml Inj (20 ML) ONE ×2 (07:26→10:00)
[2018-05-21] MEDS ORDERED: Midazolam 2 MG/2 ML VIAL ONE (07:27)
[2018-05-21] MEDS ORDERED: Succinylcholine 200 mg/10 ml Inj IV ONE (07:28)
[2018-05-21] MEDS ORDERED: ePHEDrine 50 mg/ml Inj ONE (07:28)
[2018-05-21] MEDS ORDERED: Rocuronium 10 mg/ml (5 ml) ONE (07:28)
[2018-05-21] MEDS ORDERED: Lidocaine 4% (Laryng-O-Jet) Kit MM ONE (07:28)
[2018-05-21] MEDS ORDERED: Bupivacaine HCl 0.5% PF (30 ml) Inj ONE (07:55)
[2018-05-21] MEDS ORDERED: Dexamethasone 4 mg/1 ml ONE (08:21)
[2018-05-21] MEDS ORDERED: Piperacillin/Tazobact 3.375 gm Inj IVPB ONE (08:25)
[2018-05-21] MEDS ORDERED: Lactated Ringer's 1,000 ML IV ONE ×3 (08:58→09:17)
[2018-05-21] MEDS ORDERED: Neostigmine 1:1000 (1 mg/ml) Inj ONE (09:53)
[2018-05-21] MEDS ORDERED: DiphenhydrAMINE 50 mg/ml Inj IVP PRN (10:12)
[2018-05-21] MEDS ORDERED: HYDROmorphone 0.5 mg/0.5 ml ISec IVP PRN (10:12)
--- NOTE | 2018-05-21 10:13 | PCM.SURG1 ---
Surgeon's Initial Post Op Note - Surgeon's Notes Surgeon: niru Revenue Officer: miladis hahn Type of Anesthesia: General Endo Anesthesia Administered By: sarahy Pre-Operative Diagnosis: cholecystitis Operative Findings: multiple adhesions, hydrops of the gallbladder Post-Operative Diagnosis: same Operation Performed: laparoscopic cholecystectomy, lysis of adhesions Specimen/Specimens Removed: gallbladder Estimated Blood Loss: EBL {In ML}: 10 Blood Products Given: N/A Drains Used: No Drains Post-Op Condition: Good Date of Surgery/Procedure: 05/21/18 Time of Surgery/Procedure: 10:12
[2018-05-21] MEDS ORDERED: Lactated Ringer's 1,000 ML IV SCH (10:15)
[2018-05-21] MEDS: Sodium Chloride 0.9% 1,000 ML IV SCH (11:43)
[2018-05-21] MEDS: Lactated Ringer's 1,000 ML IV SCH (12:25)
[2018-05-21] MEDS: Piperacillin/Tazobact 3.375 GM in Sodium Chloride 0.9% 100 ML IVPB SCH (13:25)
--- NOTE | 2018-05-21 15:03 | CP.PCM.DIS ---
Provider - Provider Date of Admission: 05/19/18 13:43 Attending physician: Jose Fortune MD Consults: 05/19/18 13:44 General Surgery Consult Stat Comment: Consulting Provider: Prosper Mcguire Consulting Physician: Prosper Mcguire Reason for Consult: Cholelithiasis Time Spent in preparation of Discharge (in minutes): 20 Hospital Course - Lab Results Lab Results: Micro Results 05/19/18 19:40 Blood-Venous Blood Culture - Preliminary NO GROWTH AFTER 24 HOURS 05/19/18 19:30 Blood-Venous Blood Culture - Preliminary NO GROWTH AFTER 24 HOURS Most Recent Lab Values WBC 4.8 K/uL (4.8-10.8) 05/20/18 05:45 RBC 4.61 Mil/uL (4.40-5.90) 05/20/18 05:45 Hgb 13.7 g/dL (12.0-18.0) 05/20/18 05:45 Hct 40.5 % (35.0-51.0) 05/20/18 05:45 MCV 87.9 fl (80.0-94.0) 05/20/18 05:45 MCH 29.8 pg (27.0-31.0) 05/20/18 05:45 MCHC 33.8 g/dL (33.0-37.0) 05/20/18 05:45 RDW 13.2 % (11.5-14.5) 05/20/18 05:45 Plt Count 284 K/uL (130-400) 05/20/18 05:45 MPV 8.1 fl (7.2-11.7) 05/19/18 04:40 Neut % (Auto) 66.2 % (50.0-75.0) 05/19/18 04:40 Lymph % (Auto) 23.0 % (20.0-40.0) 05/19/18 04:40 Colbert % (Auto) 8.9 % (0.0-10.0) 05/19/18 04:40 Eos % (Auto) 1.1 % (0.0-4.0) 05/19/18 04:40 Baso % (Auto) 0.8 % (0.0-2.0) 05/19/18 04:40 Neut # (Auto) 4.7 K/uL (1.8-7.0) 05/19/18 04:40 Lymph # (Auto) 1.6 K/uL (1.0-4.3) 05/19/18 04:40 Colbert # (Auto) 0.6 K/uL (0.0-0.8) 05/19/18 04:40 Eos # (Auto) 0.1 K/uL (0.0-0.7) 05/19/18 04:40 Baso # (Auto) 0.1 K/uL (0.0-0.2) 05/19/18 04:40 PT 11.9 Seconds (9.8-13.1) 05/20/18 05:45 INR 1.0 05/20/18 05:45 APTT 30.4 Seconds (25.6-37.1) 05/20/18 05:45 Sodium 139 mmol/l (132-148) 05/21/18 05:55 Potassium 4.2 MMOL/L (3.6-5.0) 05/21/18 05:55 Chloride 106 mmol/L (98-107) 05/21/18 05:55 Carbon Dioxide 26 mmol/L (22-30) 05/21/18 05:55 Anion Gap 11 (10-20) 05/21/18 05:55 BUN 15 mg/dl (9-20) 05/21/18 05:55 Creatinine 0.9 mg/dl (0.8-1.5) 05/21/18 05:55 Est GFR ( Amer) > 60 05/21/18 05:55 Est GFR (Non-Af Amer) > 60 05/21/18 05:55 Random Glucose 101 mg/dL (75-110) 05/21/18 05:55 Calcium 9.1 mg/dL (8.4-10.2) 05/21/18 05:55 Phosphorus 3.4 mg/dl (2.5-4.5) 05/20/18 05:45 Magnesium 2.2 MG/DL (1.6-2.3) 05/20/18 05:45 Total Bilirubin 1.0 mg/dl (0.2-1.3) 05/20/18 05:45 Direct Bilirubin 0.2 mg/ml (0.0-0.4) 05/19/18 04:40 AST 31 U/L (17-59) 05/20/18 05:45 ALT 40 U/L (21-72) 05/20/18 05:45 Alkaline Phosphatase 55 U/L (38-126) 05/20/18 05:45 Total Protein 7.5 G/DL (6.3-8.2) 05/20/18 05:45 Albumin 3.9 g/dL (3.5-5.0) 05/20/18 05:45 Globulin 3.5 gm/dL (2.2-3.9) 05/20/18 05:45 Albumin/Globulin Ratio 1.1 (1.0-2.1) 05/20/18 05:45 Lipase 48 U/L (23-300) 05/19/18 04:40 Urine Color Straw (YELLOW) 05/19/18 08:54 Urine Clarity Clear (Clear) 05/19/18 08:54 Urine pH 7.0 (5.0-8.0) 05/19/18 08:54 Ur Specific Neche 1.010 (1.003-1.030) 05/19/18 08:54 Urine Protein Negative mg/dL (NEGATIVE) 05/19/18 08:54 Urine Glucose (UA) Neg mg/dL (NEGATIVE) 05/19/18 08:54 Urine Ketones Negative mg/dL (NEGATIVE) 05/19/18 08:54 Urine Blood Negative (NEGATIVE) 05/19/18 08:54 Urine Nitrate Negative (NEGATIVE) 05/19/18 08:54 Urine Bilirubin Negative (NEGATIVE) 05/19/18 08:54 Urine Urobilinogen 0.2-1.0 mg/dL (0.2-1.0) 05/19/18 08:54 Ur Leukocyte Esterase Neg Pancho/uL (Negative) 05/19/18 08:54 Urine RBC (Auto) < 1 /hpf (0-3) 05/19/18 08:54 Urine Microscopic WBC < 1 /hpf (0-5) 05/19/18 08:54 Ur Squamous Epith Cells < 1 /hpf (0-5) 05/19/18 08:54 Blood Type A POSITIVE 05/20/18 05:45 Blood Type Confirm A POSITIVE 05/20/18 08:00 Antibody Screen Negative 05/20/18 05:45 BBK History Checked No verified bt 05/20/18 05:45 - Hospital Course Hospital Course: 33 year old male with past medical history of spina bifida s/p BEAN SNAPPER shunt, presented to the ED with constant, nonradiating epigastric pain that started saturday and worsened saturday night after eating a fatty meal. Patient had one episode of NBNB vomit and nausea. Tried Tylenol which did not help with pain. Nothing alleviated his symptoms.CT abdomen and US showed 3.1 cm stone at the neck of gallbladder , but no cholecystithis Surgery was consulted and patient taken to OR and underwent laparascopic cholecystectomy that showed adhesions and hydrops Post op doing well, afebrile cleared by surgery for discharge will d/c home on Po percoset PRN for pain . No need for antibiotics follow up with surgery Dr. Mcguire in 1 week Dx Cholelithiasis Discharge Exam - Head Exam Head Exam: ATRAUMATIC, NORMOCEPHALIC - Eye Exam Eye Exam: EOMI, Normal appearance, PERRL Pupil Exam: NORMAL ACCOMODATION - ENT Exam ENT Exam: Mucous Membranes Moist, Normal Exam - Neck Exam Neck exam: Full Rom, Normal Inspection - Respiratory Exam Respiratory Exam: Clear to PA & Lateral, NORMAL BREATHING PATTERN. absent: Rhonchi, Wheezes - Cardiovascular Exam Cardiovascular Exam: Tachycardia, RRR, +S1, +S2. absent: JVD - GI/Abdominal Exam GI & Abdominal Exam: Normal Bowel Sounds, Soft. absent: Distended, Guarding, Rebound, Rigid - Rectal Exam Rectal Exam: Deferred - Extremities Exam Extremities exam: normal capillary refill, normal inspection, pedal pulses present - Neurological Exam Neurological exam: Alert, CN II-XII Intact, Oriented x3 - Psychiatric Exam Psychiatric exam: Normal Affect, Normal Mood - Skin Skin Exam: Dry, Intact, Normal Color, Warm Discharge Plan - Discharge Medications Prescriptions: oxyCODONE/Acetaminophen [Percocet 5/325 mg Tab] 1 tab PO Q4 #30 tab - Follow Up Plan Condition: STABLE Disposition: HOME/ ROUTINE Instructions: Cholecystectomy, Laparoscopic Surgery, Gallstones (DC) Additional Instructions: follow up with dr mcguire 1 week Referrals: [facility] [Outside] Prosper Mcguire MD [Staff Provider] -
[2018-05-21 16:01] VITALS: BP 151/92; PULSE 122; RESP 20; TEMP 98.2; O2SAT 97
--- NOTE | 2018-06-05 01:35 | OP ---
PROCEDURE DATE: 05/21/2018 PREOPERATIVE DIAGNOSIS: Acute cholecystitis. POSTOPERATIVE DIAGNOSIS: Acute cholecystitis. OPERATION PERFORMED: Laparoscopic cholecystectomy. SURGEON: Prosper Mcguire MD CUSTOMER ADVOCATE: Dr. Head ANESTHESIA: General anesthesia. OPERATIVE FINDINGS: Multiple adhesions. Hydrops of the gallbladder. Cystic duct and cystic artery clearly identified. ESTIMATED BLOOD LOSS: 10 mL. The operative proceedings are as follows. PREPARATION AND PROCEDURE: The patient was taken to the operating room and placed supine on the operating room table. After induction of general anesthesia, the abdomen was prepped and draped in a standard surgical fashion. A Veress needle was inserted into the abdomen through the umbilicus. The abdomen was insufflated. Once sufficient CO2 was entered into the abdomen, a 10-mm trocar was placed through the umbilicus and a diagnostic laparoscopy was performed. The patient was then placed into the reversed Trendelenburg left side down position and the subxiphoid and two right-sided trocars were placed under direct vision. The gallbladder was grasped from the fundus and pulled upwards and the neck of the gallbladder was pulled outwards exposing the triangle of Calot. Blunt dissection with a [place] dissector was used to isolate the contents of the triangle of Calot. Once the contents of the triangle were isolated, the cystic duct was identified and seen to be entering the gallbladder. The cystic duct was then clipped and divided. The cystic artery was then encircled clipped and divided in a similar fashion. The gallbladder was then taken off the gallbladder fossa using the electrocautery. Once the gallbladder was off the gallbladder fossa, it was placed into an EndoCatch bag. The right upper quadrant was copiously irrigated. The gallbladder fossa was checked for bleeding. There was no evidence of bleeding. The irrigant was removed. The gallbladder was then removed via the umbilical trocar site. The trocars were then removed under direct vision. The umbilical trocar site was closed using #0 Vicryl. The skin incisions were closed using #4-0 Monocryl and the patient had 10 mL of 1% Marcaine infiltrated into all the wounds. The patient tolerated the procedure well. There were no complications. The sponge, instrument, and needle counts were correct at the end of the case. POSTOPERATIVE CONDITION: The patient was then awakened from general anesthesia, transported to the recovery room in satisfactory condition. Prosper Mcguire MD
== END 2018-05-21 18:30 | disposition home or self-care (01) | DRG 418 ==
LOC: H.ER 02:50 → H.ERHOLD 13:43 → H.MEDSURG1 17:59
PROC: 0FT44ZZ Resection of Gallbladder, Percutaneous Endoscopic Approach (ICD-10-PCS; principal; 2018-05-21 07:45)
DX: K80.00 Calculus of gallbladder with acute cholecystitis without obstruction (principal); K82.1 Hydrops of gallbladder; Q05.9 Spina bifida, unspecified; Z98.2 Presence of cerebrospinal fluid drainage device; K29.70 Gastritis, unspecified, without bleeding; G43.909 Migraine, unspecified, not intractable, without status migrainosus; N39.498 Other specified urinary incontinence; R15.9 Full incontinence of feces; R16.0 Hepatomegaly, not elsewhere classified; K76.0 Fatty (change of) liver, not elsewhere classified; R03.0 Elevated blood-pressure reading, without diagnosis of hypertension; I10 Essential (primary) hypertension